=== PATIENT | female | born 2000 | race African-American/Black ===

== ENCOUNTER 2020-03-21 12:50 | Observation (INO) | payer MEDICAID ==
[~2020-03-21] VITALS: Ht 160 cm; Wt 81.6 kg
[2020-03-21] MEDS ORDERED: PREN-145 OR (14:15)
[2020-03-21 15:22] LABS: Amphetamine Screen, Urine NEGATIVE (NEGATIVE); Barbiturate Scree,Urine NEGATIVE (NEGATIVE); Benzodiazephine Screen, Urine NEGATIVE (NEGATIVE); Cannabinoid Screen, Urine NEGATIVE (NEGATIVE); Cocaine Screen, Urine NEGATIVE (NEGATIVE); Opiate Scree,Urine NEGATIVE (NEGATIVE); Phencyclidine Screen, Urine NEGATIVE (NEGATIVE)
== END 2020-03-21 14:27 | disposition home or self-care (01) ==
LOC: LDRP 12:50
PROVIDERS: ADMIT Specialist; ATTEND Specialist
DX: O62.9 Abnormality of forces of labor, unspecified (principal); Z3A.40 40 weeks gestation of pregnancy; Z79.899 Other long term (current) drug therapy
CPT/HCPCS: 59025; 80307; 81002; G0378

== ENCOUNTER 2020-03-30 08:45 | Observation (INO) | payer MEDICAID ==
[~2020-03-30 08:45] MED LIST: PREN-145 OR
== END 2020-03-30 10:10 | disposition home or self-care (01) ==
LOC: LDRP 08:45
PROVIDERS: ADMIT Obstetrics & Gynecology; ATTEND Obstetrics & Gynecology
DX: O62.9 Abnormality of forces of labor, unspecified (principal); O99.323 Drug use complicating pregnancy, third trimester; F12.90 Cannabis use, unspecified, uncomplicated; Z3A.40 40 weeks gestation of pregnancy; Z91.040 Latex allergy status
CPT/HCPCS: 59025; 81002; G0378

== ENCOUNTER 2020-04-06 02:17 | Inpatient (IN) | payer MEDICAID ==
[~2020-04-06] VITALS: Ht 160 cm; Wt 92.1 kg
[2020-04-06] VITALS (14 sets, daily range): BP systolic 129–146; BP diastolic 59–96
[2020-04-06] MEDS ORDERED: LACTATED RINGER'S 1,000 ML IV ONE (06:30)
[2020-04-06] MEDS ORDERED: ceFAZolin 1GM/50ML 50 ML IV ONE (06:30)
[2020-04-06] MEDS: ALBUTEROL SULF 2.5 MG/0.5ML(0.5%) NEB SOLN NEB ONE ×2 (06:47→06:50)
[2020-04-06] MEDS: LACTATED RINGER'S 1,000 ML IV SCH ×3 (07:28→23:53)
[2020-04-06 08:16] LABS: Basophils # (auto) 0 10 ^3/uL (0-0.2); Basophils % (auto) 0.6 % (0.0-2.0); Eosinophils # (auto) 0.4 10 ^3/uL (0-0.8); Eosinophils % (auto) 7.5 % (0.0-7.0); Hematocrit 36.1 % (36.0-46.0); Hemoglobin 12.5 g/dL (12.2-16.2); Lymphocytes # (auto) 1.2 10 ^3/uL (0.4-5.4); Lymphocytes % (auto) 21.3 % (10.0-50.0); Mean Corpuscular Hemoglobin 31.3 pg (28.0-32.0); Mean Corpuscular Hgb Conc. 34.6 g/dL (32.0-36.0); Mean Corpuscular Volume 90.5 fL (80.0-100.0); Monocytes # (auto) 0.8 10 ^3/uL (0-1.3); Monocytes % (auto) 15.1 % (0.0-12.0); Neutrophils % (auto) 55.5 % (37.0-80.0); Nucleated Red Blood Cells % 0.4 %; Platelet Count (auto) 155 10^3/uL (140-450); Red Blood Cells 3.99 10^6/uL (4.0-5.20); Red Cell Distribution Width 13.9 % (11.8-14.3); White Blood Cell 5.5 10^3/uL (4.4-10.8)
[2020-04-06 08:25] LABS: Albumin 2.5 g/dL (3.4-5.0); Calcium 8.3 mg/dL (8.5-10.1)
[2020-04-06 08:30] LABS: BUN/Creatinine Ratio 6.4; Bilirubin, Total 0.2 mg/dL (0.2-1.0); INR 0.92 (0.9-1.15); Partial Thromboplastin Time 25.6 sec (23.0-31.2); Total Protein 6.2 g/dL (6.4-8.2)
[2020-04-06 08:36] LABS: Potassium 3.5 mmol/L (3.5-5.1)
[2020-04-06 08:49] LABS: Urine Bacteria FEW /hpf (None Seen); Urine Blood Negative /uL (Negative); Urine Specific Gravity 1.004 (1.001-1.035); Urine WBC 2 /hpf (0 - 5)
[2020-04-06 08:54] LABS: Alcohol, Urine < 3.0 mg/dL (0-10); Amphetamine Screen, Urine NEGATIVE (NEGATIVE); Barbiturate Scree,Urine NEGATIVE (NEGATIVE); Benzodiazephine Screen, Urine NEGATIVE (NEGATIVE); Cannabinoid Screen, Urine NEGATIVE (NEGATIVE); Cocaine Screen, Urine NEGATIVE (NEGATIVE); Opiate Scree,Urine NEGATIVE (NEGATIVE); Phencyclidine Screen, Urine NEGATIVE (NEGATIVE)
[2020-04-06] MEDS ORDERED: TETRACAINE 1% INJ 2 ML VIAL IJ ONE (12:23)
[2020-04-06] MEDS ORDERED: CLINDAMYCIN 900MG IV 50 ML IV ONE (12:30)
[2020-04-06] MEDS ORDERED: MORPHINE SULF(PF) 0.5MG/ML 10ML VIAL ONE (12:39)
[2020-04-06] MEDS ORDERED: fentaNYL CITRATE 100 MCG/2 ML VL ONE (12:39)
[2020-04-06] MEDS ORDERED: SUCCINYLCHOLINE CHLORIDE 20 MG/ML 10ML VIAL IV ONE (12:50)
[2020-04-06] MEDS ORDERED: ONDANSETRON HCL 4 MG/2 ML VIAL IV PRN ×2 (14:00→14:15)
[2020-04-06] MEDS ORDERED: LACT. RINGERS/OXYTOCIN 20UNITS 1,000 ML IV ONE (14:00)
[2020-04-06] MEDS ORDERED: diphenhdrAMINE HCL 50 MG/1 ML VL IV PRN (14:15)
[2020-04-06] MEDS ORDERED: NALOXONE HCL 0.4 MG/ML VIAL IV PRN (14:15)
[2020-04-06] MEDS ORDERED: OXYTOCIN 10UNIT/ML 1ML VIAL ONE (14:17)
[2020-04-06] MEDS: CLINDAMYCIN 900MG IV 50 ML IV SCH ×2 (16:09→21:29)
[2020-04-06] MEDS: MORPHINE SULFATE 4 MG/ML SYR/VIAL IV PRN (16:20)
[2020-04-06 22:00] LABS: Basophils # (auto) 0 10 ^3/uL (0-0.2); Basophils % (auto) 0.3 % (0.0-2.0); Eosinophils # (auto) 0.2 10 ^3/uL (0-0.8); Eosinophils % (auto) 2.8 % (0.0-7.0); Hematocrit 37.6 % (36.0-46.0); Hemoglobin 12.9 g/dL (12.2-16.2); Lymphocytes # (auto) 1.1 10 ^3/uL (0.4-5.4); Lymphocytes % (auto) 12.1 % (10.0-50.0); Mean Corpuscular Hemoglobin 30.9 pg (28.0-32.0); Mean Corpuscular Hgb Conc. 34.4 g/dL (32.0-36.0); Mean Corpuscular Volume 89.8 fL (80.0-100.0); Monocytes # (auto) 0.8 10 ^3/uL (0-1.3); Monocytes % (auto) 9.3 % (0.0-12.0); Neutrophils # (auto) 6.6 10 ^3/uL (1.6-8.6); Neutrophils % (auto) 75.5 % (37.0-80.0); Nucleated Red Blood Cells % 0.1 %; Platelet Count (auto) 147 10^3/uL (140-450); Red Blood Cells 4.18 10^6/uL (4.0-5.20); Red Cell Distribution Width 13.4 % (11.8-14.3); White Blood Cell 8.8 10^3/uL (4.4-10.8)
[2020-04-06] MEDS: ALBUTEROL SULF 2.5 MG/0.5ML(0.5%) NEB SOLN NEB PRN (22:52)
[2020-04-07] VITALS (17 sets, daily range): BP systolic 112–140; BP diastolic 66–93
[2020-04-07] MEDS: MORPHINE SULFATE 4 MG/ML SYR/VIAL IV PRN (03:11)
[2020-04-07 05:07] LABS: RPR Non Reactive (Non Reactive)
[2020-04-07] MEDS ORDERED: BISACODYL 10 MG RECT SUPP PR PRN (05:30)
[2020-04-07] MEDS: CLINDAMYCIN 900MG IV 50 ML IV SCH (06:10)
[2020-04-07] MEDS: SIMETHICONE 80 MG CHEWABLE TABLET PO SCH ×4 (06:10→22:21)
[2020-04-07] MEDS: LACTATED RINGER'S 1,000 ML IV SCH (06:30)
[2020-04-07] MEDS: HYDROcodone-ACET 5/325MG TAB PO PRN ×5 (07:47→21:04)
[2020-04-07] MEDS: IBUPROFEN 800 MG TAB PO PRN ×2 (08:50→20:23)
[2020-04-07 08:53] LABS: Basophils # (auto) 0 10 ^3/uL (0-0.2); Basophils % (auto) 0.2 % (0.0-2.0); Eosinophils # (auto) 0.1 10 ^3/uL (0-0.8); Eosinophils % (auto) 0.9 % (0.0-7.0); Hematocrit 34.6 % (36.0-46.0); Lymphocytes # (auto) 0.7 10 ^3/uL (0.4-5.4); Lymphocytes % (auto) 7.8 % (10.0-50.0); Mean Corpuscular Hemoglobin 31.5 pg (28.0-32.0); Mean Corpuscular Hgb Conc. 34.6 g/dL (32.0-36.0); Mean Corpuscular Volume 90.9 fL (80.0-100.0); Monocytes # (auto) 0.7 10 ^3/uL (0-1.3); Monocytes % (auto) 7.6 % (0.0-12.0); Neutrophils # (auto) 7.6 10 ^3/uL (1.6-8.6); Neutrophils % (auto) 83.5 % (37.0-80.0); Nucleated Red Blood Cells % 0.1 %; Platelet Count (auto) 148 10^3/uL (140-450); Red Blood Cells 3.81 10^6/uL (4.0-5.20); Red Cell Distribution Width 13.7 % (11.8-14.3); White Blood Cell 9.1 10^3/uL (4.4-10.8)
[2020-04-07] MEDS: DOCUSATE SOD 100 MG CAP PO SCH ×2 (09:51→22:21)
[2020-04-07] MEDS: DOCUSATE CALCIUM 240 MG CAP PO SCH (09:52)
[2020-04-07] MEDS ORDERED: HYDR-4072 PO ×2 (15:11→15:15)
[2020-04-07] MEDS ORDERED: DOCU-94 PO (15:19)
[2020-04-07] MEDS ORDERED: IBUP800T27 PO (15:19)
[2020-04-07] MEDS: ALBUTEROL SULF 2.5 MG/0.5ML(0.5%) NEB SOLN NEB PRN (19:36)
[2020-04-08 03:00] VITALS: BP 125/79
[2020-04-08] MEDS: HYDROcodone-ACET 5/325MG TAB PO PRN ×4 (04:24→18:39)
[2020-04-08] MEDS: IBUPROFEN 800 MG TAB PO PRN ×3 (05:05→21:30)
[2020-04-08 07:30] VITALS: BP 120/74
[2020-04-08] MEDS: SIMETHICONE 80 MG CHEWABLE TABLET PO SCH ×3 (09:41→18:20)
[2020-04-08] MEDS: DOCUSATE SOD 100 MG CAP PO SCH ×2 (09:41→21:30)
[2020-04-08] MEDS: DOCUSATE CALCIUM 240 MG CAP PO SCH (09:41)
[2020-04-08 11:00] VITALS: BP 142/87
[2020-04-08 15:30] VITALS: BP 122/72
[2020-04-08 18:55] VITALS: BP 143/93
[2020-04-08 23:00] VITALS: BP 119/66
[2020-04-09] MEDS: SIMETHICONE 80 MG CHEWABLE TABLET PO SCH ×3 (00:08→12:27)
[2020-04-09] MEDS: HYDROcodone-ACET 5/325MG TAB PO PRN ×2 (02:05→09:25)
[2020-04-09 03:00] VITALS: BP 142/83
[2020-04-09] MEDS: IBUPROFEN 800 MG TAB PO PRN (05:29)
[2020-04-09 07:30] VITALS: BP 132/75
[2020-04-09] MEDS: ALBUTEROL SULF 2.5 MG/0.5ML(0.5%) NEB SOLN NEB PRN (08:41)
[2020-04-09] MEDS: DOCUSATE SOD 100 MG CAP PO SCH (09:30)
[2020-04-09] MEDS: DOCUSATE CALCIUM 240 MG CAP PO SCH (09:30)
[2020-04-09 11:00] VITALS: BP 137/89
== END 2020-04-09 13:20 | disposition home or self-care (01) | DRG 540 ==
LOC: LDRP 02:17 → OBSVTOIN 02:18 → LDRP 14:04
PROVIDERS: ADMIT Specialist; ATTEND Specialist
PROC: 10D00Z1 Extraction of Products of Conception, Low, Open Approach (ICD-10-PCS; principal; 2020-04-06 12:45)
DX: O36.63X0 Maternal care for excessive fetal growth, third trimester, not applicable or unspecified (principal); O99.52 Diseases of the respiratory system complicating childbirth; J45.909 Unspecified asthma, uncomplicated; Z20.822 Contact with and (suspected) exposure to COVID-19; Z37.0 Single live birth; Z3A.41 41 weeks gestation of pregnancy
CPT/HCPCS: 36415; 59025; 76805; 76818; 80053; 80307; 81001; 81002; 82948; 82962; 84112; 85025; 85610; 85730; 86592; 86850; 86900; 86901; 87426; 94640; 94760; 96360; 96361; 96366; G0378; J0330; J3490

== ENCOUNTER 2020-05-27 05:22 | Emergency (ER) | payer MEDICAID ==
[~2020-05-27] VITALS: Ht 160 cm; Wt 84.4 kg
[~2020-05-27 05:22] MED LIST changes: +DOCU-94 PO; +HYDR-4072 PO; +IBUP800T27 PO
[2020-05-27] MEDS ORDERED: IPRATROPIUM BROM 0.5 MG/2.5ML INH SOL NEB ONE ×2 (05:30→07:45)
[2020-05-27] MEDS ORDERED: ALBUTEROL SULF 2.5 MG/0.5ML(0.5%) NEB SOLN NEB ONE ×2 (05:30→07:45)
[2020-05-27] MEDS ORDERED: methylPREDNISolone SOD SUCC 125 MG/2 ML VL IM ONE (07:45)
[2020-05-27 07:46] VITALS: BP 121/59
[2020-05-27] MEDS ORDERED: cefTRIAXone SOD 1,000 MG VL IM ONE (08:45)
== END 2020-05-27 09:12 | disposition home or self-care (01) ==
LOC: ER 05:22
DX: J45.901 Unspecified asthma with (acute) exacerbation (principal); J18.9 Pneumonia, unspecified organism; F17.210 Nicotine dependence, cigarettes, uncomplicated
CPT/HCPCS: 71046; 94640; 96372; 99284; J0696; J2930; J7644

== ENCOUNTER 2020-09-22 18:51 | Emergency (ER) | payer MEDICAID ==
[~2020-09-22] VITALS: Ht 160 cm; Wt 79.4 kg
[2020-09-22 20:37] LABS: Basophils # (auto) 0 10 ^3/uL (0-0.2); Basophils % (auto) 0.7 % (0.0-2.0); Eosinophils # (auto) 0.2 10 ^3/uL (0-0.8); Eosinophils % (auto) 3.4 % (0.0-7.0); Hematocrit 30.6 % (36.0-46.0); Hemoglobin 10.5 g/dL (12.2-16.2); Lymphocytes # (auto) 2.4 10 ^3/uL (0.4-5.4); Lymphocytes % (auto) 34.6 % (10.0-50.0); Mean Corpuscular Hemoglobin 30.6 pg (28.0-32.0); Mean Corpuscular Hgb Conc. 34.3 g/dL (32.0-36.0); Mean Corpuscular Volume 89.3 fL (80.0-100.0); Monocytes # (auto) 0.5 10 ^3/uL (0-1.3); Monocytes % (auto) 7.8 % (0.0-12.0); Neutrophils # (auto) 3.7 10 ^3/uL (1.6-8.6); Neutrophils % (auto) 53.5 % (37.0-80.0); Nucleated Red Blood Cells % 0.2 %; Red Blood Cells 3.43 10^6/uL (4.0-5.20); Red Cell Distribution Width 13.5 % (11.8-14.3)
[2020-09-22 20:47] LABS: Urine Bacteria MOD /hpf (None Seen); Urine Blood 3+ /uL (Negative); Urine Specific Gravity 1.016 (1.001-1.035); Urine WBC 141 /hpf (0 - 5)
[2020-09-22 20:49] LABS: Albumin 3.6 g/dL (3.4-5.0); BUN/Creatinine Ratio 18.8; Calcium 8.5 mg/dL (8.5-10.1); Potassium 4.3 mmol/L (3.5-5.1)
[2020-09-22 20:52] LABS: Bilirubin, Total 0.1 mg/dL (0.2-1.0)
[2020-09-22 21:34] LABS: INR 0.95 (0.9-1.15); Partial Thromboplastin Time 22.4 sec (23.0-31.2)
[2020-09-23] MEDS ORDERED: SODIUM CHLORIDE 0.9% 1,000 ML IV ONE (02:00)
[2020-09-23 02:11] VITALS: BP 122/72
== END 2020-09-23 04:50 | disposition left against medical advice (07) ==
LOC: ER 18:51
DX: N39.0 Urinary tract infection, site not specified (principal); E28.2 Polycystic ovarian syndrome; F17.210 Nicotine dependence, cigarettes, uncomplicated; F12.10 Cannabis abuse, uncomplicated; J45.909 Unspecified asthma, uncomplicated; Z91.040 Latex allergy status
CPT/HCPCS: 36415; 74176; 76830; 76856; 80053; 81001; 84702; 85025; 85610; 85730; 99285; J7030

== ENCOUNTER → 2021-05-30 | Outpatient (CLI) | payer MEDICAID ==
[2021-05-30 10:56] LABS: Basophils # (auto) 0 10 ^3/uL (0-0.2); Basophils % (auto) 0.5 % (0.0-2.0); Eosinophils # (auto) 0.3 10 ^3/uL (0-0.8); Eosinophils % (auto) 3.7 % (0.0-7.0); Hematocrit 32.3 % (36.0-46.0); Hemoglobin 10.2 g/dL (12.2-16.2); Lymphocytes % (auto) 27.2 % (10.0-50.0); Mean Corpuscular Hemoglobin 23.8 pg (28.0-32.0); Mean Corpuscular Hgb Conc. 31.6 g/dL (32.0-36.0); Mean Corpuscular Volume 75.5 fL (80.0-100.0); Monocytes # (auto) 0.8 10 ^3/uL (0-1.3); Monocytes % (auto) 10.6 % (0.0-12.0); Neutrophils # (auto) 4.4 10 ^3/uL (1.6-8.6); Nucleated Red Blood Cells % 0.3 %; Red Blood Cells 4.29 10^6/uL (4.0-5.20); Red Cell Distribution Width 20.8 % (11.8-14.3); White Blood Cell 7.5 10^3/uL (4.4-10.8)
[2021-05-30 11:25] LABS: Alcohol, Urine < 3.0 mg/dL (0-10); Amphetamine Screen, Urine NEGATIVE (NEGATIVE); Barbiturate Scree,Urine NEGATIVE (NEGATIVE); Benzodiazephine Screen, Urine NEGATIVE (NEGATIVE); Cocaine Screen, Urine NEGATIVE (NEGATIVE); Phencyclidine Screen, Urine NEGATIVE (NEGATIVE)
[2021-05-30 11:33] LABS: Cannabinoid Screen, Urine POSITIVE (NEGATIVE); Opiate Scree,Urine NEGATIVE (NEGATIVE)
[2021-05-30 11:43] LABS: RUBELLA Positive
[2021-05-31 06:06] LABS: RPR Non Reactive (Non Reactive)
== END | disposition home or self-care (01) ==
LOC: LAB 08:36
PROVIDERS: ATTEND Obstetrics & Gynecology
DX: Z34.80 Encounter for supervision of other normal pregnancy, unspecified trimester (principal); N39.0 Urinary tract infection, site not specified; Z31.430 Encounter of female for testing for genetic disease carrier status for procreative management; Z36.0 Encounter for antenatal screening for chromosomal anomalies
CPT/HCPCS: 36415; 80307; 82951; 83021; 83036; 84112; 84144; 84702; 85025; 85660; 86592; 86703; 86762; 86850; 86900; 86901; 87086; 87340

== ENCOUNTER 2021-11-06 10:55 | Inpatient (IN) | payer MEDICAID ==
[~2021-11-06] VITALS: Ht 160 cm; Wt 99.8 kg
[2021-11-06] MEDS ORDERED: LACTATED RINGER'S 1,000 ML IV ONE (11:15)
[2021-11-06] MEDS ORDERED: ceFAZolin 1GM/50ML 50 ML IV ONE (11:15)
[2021-11-06] MEDS ORDERED: CLINDAMYCIN 900MG IV 50 ML IV ONE (11:45)
[2021-11-06 11:53] LABS: Basophils # (auto) 0 10 ^3/uL (0-0.2); Basophils % (auto) 0.5 % (0.0-2.0); Eosinophils # (auto) 0.1 10 ^3/uL (0-0.8); Eosinophils % (auto) 1.8 % (0.0-7.0); Hematocrit 26.8 % (36.0-46.0); Hemoglobin 8.1 g/dL (12.2-16.2); Lymphocytes # (auto) 1.4 10 ^3/uL (0.4-5.4); Lymphocytes % (auto) 18.3 % (10.0-50.0); Mean Corpuscular Hemoglobin 20.2 pg (28.0-32.0); Mean Corpuscular Hgb Conc. 30.2 g/dL (32.0-36.0); Monocytes # (auto) 0.7 10 ^3/uL (0-1.3); Monocytes % (auto) 9.8 % (0.0-12.0); Neutrophils # (auto) 5.2 10 ^3/uL (1.6-8.6); Neutrophils % (auto) 69.6 % (37.0-80.0); Nucleated Red Blood Cells % 0.5 %; Red Cell Distribution Width 21.7 % (11.8-14.3); White Blood Cell 7.5 10^3/uL (4.4-10.8)
[2021-11-06 12:13] LABS: Albumin 2.7 g/dL (3.4-5.0); Calcium 8.6 mg/dL (8.5-10.1); Potassium 3.7 mmol/L (3.5-5.1)
[2021-11-06 12:13] LABS: Alcohol, Urine < 3.0 mg/dL (0-10); Amphetamine Screen, Urine NEGATIVE (NEGATIVE); Barbiturate Scree,Urine NEGATIVE (NEGATIVE); Benzodiazephine Screen, Urine NEGATIVE (NEGATIVE); Cannabinoid Screen, Urine POSITIVE (NEGATIVE); Cocaine Screen, Urine NEGATIVE (NEGATIVE); Opiate Scree,Urine NEGATIVE (NEGATIVE); Phencyclidine Screen, Urine NEGATIVE (NEGATIVE)
[2021-11-06 12:17] LABS: BUN/Creatinine Ratio 9.3; Bilirubin, Total 0.3 mg/dL (0.2-1.0); Total Protein 6.3 g/dL (6.4-8.2)
[2021-11-06] MEDS: LACTATED RINGER'S 1,000 ML IV SCH ×2 (12:34→16:03)
[2021-11-06] MEDS ORDERED: TETRACAINE 1% INJ 2 ML VIAL IJ ONE (12:53)
[2021-11-06] MEDS ORDERED: oxyTOCIN 10 UNIT/ML 10ML VIAL ONE (12:59)
[2021-11-06] MEDS ORDERED: EPINEPHrine HCL 1 MG/1 ML AMP ONE (12:59)
[2021-11-06] MEDS ORDERED: MIDAZOLAM HCL 2MG/2ML 2ml VIAL (1mg/ml) ONE ×2 (12:59→13:30)
[2021-11-06] MEDS ORDERED: DexAMETHasone SOD PHOS 10MG/1ML VIAL INJ ONE (12:59)
[2021-11-06] MEDS ORDERED: fentaNYL CITRATE 100 MCG/2 ML VL ONE (12:59)
[2021-11-06] MEDS ORDERED: ONDANSETRON HCL 4 MG/2 ML VIAL ONE (12:59)
[2021-11-06] MEDS ORDERED: SODIUM CHLORIDE LOCK 10 ML ONE (12:59)
[2021-11-06] MEDS ORDERED: MORPHINE SULF PF 5 MG/10 ML VIAL ONE (13:02)
[2021-11-06 13:15] LABS: INR 0.87 (0.9-1.15)
[2021-11-06] MEDS ORDERED: SODIUM CHLORIDE LOCK 20 ML ONE (14:06)
[2021-11-06] MEDS ORDERED: GUM (CHEWING) 1 GUM CHEW CHEW ONE (14:15)
[2021-11-06] MEDS ORDERED: LACT. RINGERS/OXYTOCIN 20UNITS 1,000 ML IV ONE (14:15)
[2021-11-06] MEDS ORDERED: ONDANSETRON HCL 4 MG/2 ML VIAL IV PRN (14:15)
[2021-11-06] MEDS ORDERED: IBUP800T27 PO (14:22)
[2021-11-06] MEDS ORDERED: FER325T PO (14:22)
[2021-11-06] MEDS ORDERED: DOCU-94 PO (14:22)
[2021-11-06] MEDS ORDERED: HYDR-4902 PO (14:22)
[2021-11-06 15:04] LABS: Urine Bacteria NONE SEEN /hpf (None Seen); Urine Blood Negative /uL (Negative); Urine Mucus FEW (None Seen); Urine WBC 1 /hpf (0 - 5)
[2021-11-06] MEDS ORDERED: NALOXONE HCL 0.4 MG/ML VIAL IV PRN (15:15)
[2021-11-06] MEDS ORDERED: MORPHINE SULFATE 4 MG/ML SYR/VIAL IV PRN (15:15)
[2021-11-06] MEDS ORDERED: METOCLOPRAMIDE HCL 5MG/ml INJ 2ml VIAL IV PRN (15:15)
[2021-11-06] MEDS ORDERED: diphenhdrAMINE HCL 50 MG/1 ML VL IV PRN (15:15)
[2021-11-06] MEDS ORDERED: HYDROmorphone HCL 2 MG/ML VL/or syr IV PRN ×2 (15:15)
[2021-11-06] MEDS ORDERED: ACETAMINOPHEN IV 1000 MG/100ML (10MG/ML) IV PRN (18:45)
[2021-11-06 19:30] VITALS: BP 124/79
[2021-11-06] MEDS: CLINDAMYCIN 900MG IV 50 ML IV SCH (22:07)
[2021-11-06 23:00] VITALS: BP 129/74
[2021-11-06 23:53] LABS: Basophils # (auto) 0 10 ^3/uL (0-0.2); Basophils % (auto) 0.1 % (0.0-2.0); Eosinophils # (auto) 0 10 ^3/uL (0-0.8); Neutrophils # (auto) 12.5 10 ^3/uL (1.6-8.6); White Blood Cell 13.4 10^3/uL (4.4-10.8)
[2021-11-06 23:54] LABS: Hematocrit 25.5 % (36.0-46.0); Hemoglobin 7.5 g/dL (12.2-16.2); Lymphocytes # (auto) 0.5 10 ^3/uL (0.4-5.4); Mean Corpuscular Hemoglobin 20.2 pg (28.0-32.0); Mean Corpuscular Hgb Conc. 29.6 g/dL (32.0-36.0); Mean Corpuscular Volume 68.4 fL (80.0-100.0); Monocytes # (auto) 0.4 10 ^3/uL (0-1.3); Monocytes % (auto) 2.9 % (0.0-12.0); Nucleated Red Blood Cells % 0.5 %; Red Blood Cells 3.73 10^6/uL (4.0-5.20)
[2021-11-06 23:57] LABS: Red Cell Distribution Width 21.9 % (11.8-14.3)
[2021-11-07] VITALS (10 sets, daily range): BP systolic 103–139; BP diastolic 54–84
[2021-11-07] MEDS: CLINDAMYCIN 900MG IV 50 ML IV SCH ×3 (05:30→22:01)
[2021-11-07 06:07] LABS: RPR Non Reactive (Non Reactive)
[2021-11-07] MEDS ORDERED: BISACODYL 10 MG RECT SUPP PR PRN (06:30)
[2021-11-07] MEDS: DOCUSATE CALCIUM 240 MG CAP PO SCH (09:59)
[2021-11-07] MEDS: FERROUS SULFATE 325mg EC TAB PO SCH ×2 (09:59→22:11)
[2021-11-07] MEDS: DOCUSATE SOD 100 MG CAP PO SCH ×2 (10:00→22:12)
[2021-11-07 10:59] LABS: Basophils # (auto) 0 10 ^3/uL (0-0.2); Eosinophils # (auto) 0 10 ^3/uL (0-0.8); Lymphocytes # (auto) 0.9 10 ^3/uL (0.4-5.4); Monocytes # (auto) 0.8 10 ^3/uL (0-1.3)
[2021-11-07 11:01] LABS: Basophils % (auto) 0.1 % (0.0-2.0); Hematocrit 20.2 % (36.0-46.0); Lymphocytes % (auto) 8.7 % (10.0-50.0); Mean Corpuscular Hemoglobin 20.8 pg (28.0-32.0); Mean Corpuscular Hgb Conc. 30.5 g/dL (32.0-36.0); Monocytes % (auto) 7.9 % (0.0-12.0); Neutrophils # (auto) 8.9 10 ^3/uL (1.6-8.6); Neutrophils % (auto) 83.3 % (37.0-80.0); Nucleated Red Blood Cells % 0.6 %; Red Blood Cells 2.97 10^6/uL (4.0-5.20); White Blood Cell 10.7 10^3/uL (4.4-10.8)
[2021-11-07 11:21] LABS: Hemoglobin 6.2 g/dL (12.2-16.2); Red Cell Distribution Width 21.5 % (11.8-14.3)
[2021-11-07] MEDS: SIMETHICONE 80 MG CHEWABLE TABLET PO SCH ×3 (11:43→22:11)
[2021-11-07] MEDS: LACTATED RINGER'S 1,000 ML IV SCH (11:50)
[2021-11-07] MEDS: IBUPROFEN 800 MG TAB PO PRN (11:57)
[2021-11-07] MEDS: HYDROcodone-ACET 5/325MG TAB PO PRN ×2 (13:35→20:46)
[2021-11-08] VITALS (9 sets, daily range): BP systolic 116–135; BP diastolic 56–70
[2021-11-08] MEDS: IBUPROFEN 800 MG TAB PO PRN ×2 (02:51→14:15)
[2021-11-08] MEDS: HYDROcodone-ACET 5/325MG TAB PO PRN ×4 (02:51→21:51)
[2021-11-08] MEDS: SIMETHICONE 80 MG CHEWABLE TABLET PO SCH ×4 (05:42→21:51)
[2021-11-08] MEDS: DOCUSATE CALCIUM 240 MG CAP PO SCH (10:06)
[2021-11-08] MEDS: DOCUSATE SOD 100 MG CAP PO SCH ×2 (10:06→21:51)
[2021-11-08] MEDS: FERROUS SULFATE 325mg EC TAB PO SCH ×2 (10:06→21:51)
[2021-11-08 17:12] LABS: Hemoglobin 8.5 g/dL (12.2-16.2); Monocytes # (auto) 1.1 10 ^3/uL (0-1.3)
[2021-11-08 17:14] LABS: Basophils # (auto) 0 10 ^3/uL (0-0.2); Basophils % (auto) 0.3 % (0.0-2.0); Eosinophils # (auto) 0.1 10 ^3/uL (0-0.8); Eosinophils % (auto) 1.2 % (0.0-7.0); Hematocrit 27.7 % (36.0-46.0); Lymphocytes # (auto) 1.1 10 ^3/uL (0.4-5.4); Lymphocytes % (auto) 9.9 % (10.0-50.0); Mean Corpuscular Hemoglobin 22.1 pg (28.0-32.0); Mean Corpuscular Hgb Conc. 30.7 g/dL (32.0-36.0); Monocytes % (auto) 9.8 % (0.0-12.0); Neutrophils # (auto) 8.8 10 ^3/uL (1.6-8.6); Neutrophils % (auto) 78.8 % (37.0-80.0); Nucleated Red Blood Cells % 0.4 %; Red Blood Cells 3.85 10^6/uL (4.0-5.20); Red Cell Distribution Width 23.6 % (11.8-14.3); White Blood Cell 11.2 10^3/uL (4.4-10.8)
[2021-11-09] MEDS: HYDROcodone-ACET 5/325MG TAB PO PRN ×2 (02:52→09:50)
[2021-11-09 03:04] VITALS: BP 112/76
[2021-11-09] MEDS: SIMETHICONE 80 MG CHEWABLE TABLET PO SCH (05:30)
[2021-11-09 07:00] VITALS: BP 110/75
[2021-11-09] MEDS: IBUPROFEN 800 MG TAB PO PRN (07:29)
[2021-11-09] MEDS: DOCUSATE SOD 100 MG CAP PO SCH (09:50)
[2021-11-09] MEDS: FERROUS SULFATE 325mg EC TAB PO SCH (09:50)
[2021-11-09] MEDS: DOCUSATE CALCIUM 240 MG CAP PO SCH (09:50)
[2021-11-09 11:00] VITALS: BP 105/62
== END 2021-11-09 12:11 | disposition home or self-care (01) | DRG 540 ==
LOC: LDRP 10:55
PROVIDERS: ADMIT Obstetrics & Gynecology; ATTEND Obstetrics & Gynecology
PROC: 10D00Z1 Extraction of Products of Conception, Low, Open Approach (ICD-10-PCS; principal; 2021-11-06 13:13)
PROC: 30233N1 Transfusion of Nonautologous Red Blood Cells into Peripheral Vein, Percutaneous Approach (ICD-10-PCS; 2021-11-07)
DX: O99.324 Drug use complicating childbirth (principal); O60.10X0 Preterm labor with preterm delivery, unspecified trimester, not applicable or unspecified; F12.90 Cannabis use, unspecified, uncomplicated; O99.02 Anemia complicating childbirth; J45.909 Unspecified asthma, uncomplicated; Z20.822 Contact with and (suspected) exposure to COVID-19; O99.52 Diseases of the respiratory system complicating childbirth; O99.892 Other specified diseases and conditions complicating childbirth; N73.6 Female pelvic peritoneal adhesions (postinfective); O34.211 Maternal care for low transverse scar from previous cesarean delivery; Z37.0 Single live birth; Z3A.38 38 weeks gestation of pregnancy; Z82.49 Family history of ischemic heart disease and other diseases of the circulatory system; R71.0 Precipitous drop in hematocrit
CPT/HCPCS: 36415; 36430; 59025; 74021; 80053; 80307; 81001; 85025; 85610; 85730; 86592; 86850; 86900; 86901; 86920; 94760; 94762; 96360; 96361; 96365; 96366; G0378; J0131; J0171; J1100; J2250; J2405; J2590; J3490

== ENCOUNTER → 2022-12-25 | Outpatient (CLI) | payer MEDICAID ==
[~2022-12-25] MED LIST changes: +FER325T PO; +HYDR-4902 PO; +IBUP-1456 PO; -IBUP800T27 PO
[2022-12-25 12:45] LABS: Basophils # (auto) 0 10 ^3/uL (0-0.2); Lymphocytes # (auto) 1.5 10 ^3/uL (0.4-5.4); Monocytes # (auto) 0.4 10 ^3/uL (0-1.3); Neutrophils # (auto) 3.7 10 ^3/uL (1.6-8.6); Nucleated Red Blood Cells % 0.1 %
[2022-12-25 12:46] LABS: Basophils % (auto) 0.4 % (0.0-2.0); Eosinophils # (auto) 0.2 10 ^3/uL (0-0.8); Eosinophils % (auto) 2.6 % (0.0-7.0); Hemoglobin 11.4 g/dL (12.2-16.2); Lymphocytes % (auto) 25.3 % (10.0-50.0); Mean Corpuscular Hemoglobin 26.9 pg (28.0-32.0); Mean Corpuscular Hgb Conc. 32.6 g/dL (32.0-36.0); Mean Corpuscular Volume 82.5 fL (80.0-100.0); Monocytes % (auto) 6.7 % (0.0-12.0); Red Blood Cells 4.25 10^6/uL (4.0-5.20); Red Cell Distribution Width 17.3 % (11.8-14.3); White Blood Cell 5.8 10^3/uL (4.4-10.8)
[2022-12-25 13:28] LABS: Amphetamine Screen, Urine Neg (NEGATIVE); Barbiturate Scree,Urine Neg (NEGATIVE); Benzodiazephine Screen, Urine Neg (NEGATIVE); Cocaine Screen, Urine Neg (NEGATIVE); Opiate Scree,Urine Neg (NEGATIVE)
[2022-12-25 13:29] LABS: Cannabinoid Screen, Urine Pos (NEGATIVE); Phencyclidine Screen, Urine Neg (NEGATIVE)
[2022-12-26 07:07] LABS: RPR Non Reactive (Non Reactive)
[2022-12-26 08:06] LABS: Varicella Zoster IgG Antibody 668 index (Immune >165)
[2022-12-26 14:06] LABS: Chlamydia Trachomatis, NAA Negative (Negative); Neisseria gonorrhoeae, NAA Negative (Negative)
== END | disposition home or self-care (01) ==
LOC: LAB 12:09
PROVIDERS: ATTEND Obstetrics & Gynecology
DX: Z34.80 Encounter for supervision of other normal pregnancy, unspecified trimester (principal); Z36.0 Encounter for antenatal screening for chromosomal anomalies; N39.0 Urinary tract infection, site not specified; D56.5 Hemoglobin E-beta thalassemia; Z3A.00 Weeks of gestation of pregnancy not specified
CPT/HCPCS: 36415; 80307; 83036; 84702; 85025; 86592; 86703; 86762; 86787; 86850; 86900; 86901; 87086; 87340